=== PATIENT | male | born 1975 | race Caucasian/White ===

== ENCOUNTER 2021-04-25 02:14 | Emergency (ER) | payer MEDICAID ==
[~2021-04-25] VITALS: Ht 175.3 cm; Wt 104.0 kg
[2021-04-25 02:33] VITALS: BP 126/93
[2021-04-25] MEDS ORDERED: IBUP-2029 PO (03:38)
[2021-04-25] MEDS ORDERED: OFLO5DRO4 RIGHT EAR (03:38)
[2021-04-25] MEDS ORDERED: CEPH500C2 MT (03:38)
== END 2021-04-25 03:58 | disposition home or self-care (01) ==
LOC: ER 02:14
DX: H60.91 Unspecified otitis externa, right ear (principal)
CPT/HCPCS: 99283